=== PATIENT | female | born 1950 | race Caucasian/White ===

== ENCOUNTER 2016-10-09 14:08 | Inpatient (IN) | payer MEDICARE ==
[~2016-10-09] VITALS: Ht 152.4 cm; Wt 74.0 kg
[~2016-10-09 14:08] MED LIST changes: -CLON0.1T PO; -CLOP75TA22 PO; -HYDR2TAB13 PO; +HYDR2TAB29 PO; -LOSA50TA2 PO; -PRED5TAB PO
[2016-10-09] MEDS ORDERED: PRED5TAB PO (14:48)
[2016-10-09] MEDS ORDERED: CLOP75TA22 PO (14:48)
[2016-10-09] MEDS ORDERED: LOSA50TA2 PO (14:48)
[2016-10-09] MEDS ORDERED: CLON0.1T PO (14:48)
[2016-10-17] MEDS ORDERED: THROMBIN 5,000 UNIT VIAL TP ONE (06:04)
[2016-10-17] MEDS ORDERED: BACITRACIN 50,000 UNIT ONE (06:04)
[2016-10-17] MEDS ORDERED: BUPIVACAINE/PF-EPI 0.5% 1:200K ONE (06:04)
[2016-10-17 08:24] VITALS: BP 168/87
[2016-10-17] MEDS ORDERED: LACTATED RINGERS 1,000 ML IV SCH (08:28)
[2016-10-17] MEDS ORDERED: ACTEMRA (08:33)
[2016-10-17] MEDS ORDERED: MIDAZOLAM 1 MG/ML, 2ML ONE (08:51)
[2016-10-17] MEDS ORDERED: FENTANYL PF 100 MCG/2ML ONE ×3 (08:51→12:16)
[2016-10-17] MEDS ORDERED: EPHEDRINE 50 MG/ML, 1ML IVPush PRN (09:00)
[2016-10-17] MEDS ORDERED: hydrALAzine 20 MG/ML, 1ML IV PRN (09:00)
[2016-10-17] MEDS ORDERED: LABETALOL 5MG/ML, 20ML IV PRN ×2 (09:00→16:00)
[2016-10-17] MEDS ORDERED: OXYcodone 5 MG/5 ML ORAL.SOL UDC PO PRN (09:00)
[2016-10-17] MEDS ORDERED: MIDAZOLAM 1 MG/ML, 2ML IV PRN (09:00)
[2016-10-17] MEDS ORDERED: ONDANSETRON 2MG/ML, 2ML IVPush PRN (09:00)
[2016-10-17] MEDS ORDERED: MEPERIDINE/PF 25MG/0.5ML IVPush PRN (09:00)
[2016-10-17] MEDS ORDERED: ACETAMINOPHEN 325 MG TABLET PO PRN (09:00)
[2016-10-17] MEDS ORDERED: HYDROcodone/APAP 7.5-325MG/15ML UDC PO PRN (09:00)
[2016-10-17] MEDS ORDERED: FENTANYL PF 100 MCG/2ML IV PRN (09:00)
[2016-10-17] MEDS ORDERED: PROMETHAZINE 25 MG/ML, 1ML IV PRN (09:00)
[2016-10-17] MEDS ORDERED: PHENYLEPHRINE 10 MG/ML ONE (10:11)
[2016-10-17] MEDS ORDERED: SUCCINYLCHOLINE 20 MG/ML, 10ML ONE (10:11)
[2016-10-17] MEDS ORDERED: REMIFENTANIL 2 MG ONE (10:11)
[2016-10-17] MEDS ORDERED: ONDANSETRON 2MG/ML, 2ML ONE (10:11)
[2016-10-17] MEDS ORDERED: KETOROLAC 30 MG/1 ML ONE (10:11)
[2016-10-17] MEDS ORDERED: EPHEDRINE 50 MG/ML, 1ML ONE (10:11)
[2016-10-17] MEDS ORDERED: PROPOFOL 10 MG/ML, 20ML ONE (10:11)
[2016-10-17] MEDS ORDERED: CEFAZOLIN 1,000 MG ONE (10:11)
[2016-10-17] MEDS ORDERED: PROPOFOL 10 MG/ML, 50ML ONE (10:11)
[2016-10-17] MEDS ORDERED: DEXAMETHASONE 4 MG/ML, 1ML ONE (10:11)
[2016-10-17] MEDS: HYDROmorphone 1 MG/ML, 1ML IV PRN ×2 (12:05→12:29)
[2016-10-17] MEDS ORDERED: LABETALOL 5MG/ML, 20ML ONE (12:16)
[2016-10-17] MEDS ORDERED: HYDROmorphone 1 MG/ML, 1ML ONE (12:16)
[2016-10-17] MEDS ORDERED: HYDROcodone/APAP 7.5-325MG/15ML UDC ONE (12:16)
[2016-10-17] MEDS ORDERED: hydrALAzine 20 MG/ML, 1ML ONE (12:31)
[2016-10-17] MEDS ORDERED: ONDANSETRON 2MG/ML, 2ML IV PRN (16:00)
[2016-10-17] MEDS ORDERED: BISACODYL 10 MG SUPP PR PRN (16:00)
[2016-10-17] MEDS ORDERED: DIPHENHYDRAMINE 25 MG CAPSULE PO PRN (16:00)
[2016-10-17] MEDS ORDERED: MAGNESIUM HYDROXIDE 8%, 30ML UDC PO PRN (16:00)
[2016-10-17] MEDS ORDERED: NITROGLYCERIN 0.4 MG BOTTLE (25 TABS) SL PRN (16:30)
[2016-10-17] MEDS: morphine SULFATE 10 MG/ML, 1ML IV PRN ×2 (16:42→20:18)
[2016-10-17] MEDS: CEFAZOLIN PMX 1GM/50ML 50 ML IVPB SCH (17:19)
[2016-10-17] MEDS: DEXAMETHASONE 4 MG/ML, 1ML IV SCH (17:19)
[2016-10-17] MEDS: D5%-0.9% NACL+KCL 20MEQ 1,000 ML IV SCH (17:20)
[2016-10-17] MEDS: CYCLOBENZAPRINE 10 MG TABLET PO PRN (18:09)
[2016-10-17] MEDS: FAMOTIDINE 20 MG TABLET PO SCH (20:21)
[2016-10-17] MEDS: LOSARTAN 50MG TABLET PO SCH (20:21)
[2016-10-17] MEDS: HYDROmorphone 2MG TABLET PO PRN (23:24)
[2016-10-18] MEDS: DEXAMETHASONE 4 MG/ML, 1ML IV SCH (01:14)
[2016-10-18] MEDS: CEFAZOLIN PMX 1GM/50ML 50 ML IVPB SCH ×3 (02:14→20:09)
[2016-10-18 03:37] VITALS: BP 138/76
[2016-10-18] MEDS: HYDROmorphone 2MG TABLET PO PRN ×2 (03:48→13:16)
[2016-10-18 05:47] LABS: BLOOD UREA NITROGEN 8 mg/dL (7-18)
[2016-10-18] MEDS: HYDROcodone/APAP 10/325 MG TABLET PO PRN ×2 (05:47→21:57)
[2016-10-18] MEDS: LEVOTHYROXINE 112 MCG TABLET PO SCH (05:57)
[2016-10-18] MEDS: D5%-0.9% NACL+KCL 20MEQ 1,000 ML IV SCH ×2 (06:36→19:00)
[2016-10-18 07:13] LABS: IS PT STATUS REG ER OR PRE ER? NO
[2016-10-18 07:50] VITALS: BP 134/74
[2016-10-18] MEDS ORDERED: NITROGLYCERIN 0.4 MG BOTTLE (25 TABS) SL PRN (08:00)
[2016-10-18] MEDS: NITROGLYCERIN OINT 2%, 1GM TP SCH ×4 (08:00→22:00)
[2016-10-18] MEDS: morphine SULFATE 10 MG/ML, 1ML IV PRN ×4 (08:19→20:12)
[2016-10-18 09:30] VITALS: BP 146/80
[2016-10-18] MEDS: LOSARTAN 50MG TABLET PO SCH ×2 (09:32→21:56)
[2016-10-18] MEDS: FAMOTIDINE 20 MG TABLET PO SCH ×2 (09:33→21:56)
[2016-10-18] MEDS: AMLODIPINE 5 MG TABLET PO SCH (09:33)
[2016-10-18] MEDS: METOPROLOL SUCCINATE 25 MG TAB.ER.24H PO SCH ×2 (09:34→21:57)
[2016-10-18] MEDS: SENNA/DOCUSATE TABLET PO SCH (09:40)
[2016-10-18 12:46] LABS: IS PT STATUS REG ER OR PRE ER? NO
[2016-10-18] MEDS: CYCLOBENZAPRINE 10 MG TABLET PO PRN (13:17)
[2016-10-18 13:20] VITALS: BP 116/55
[2016-10-18] MEDS: MAALOX/HYOSCYAMINE/LIDOCAINE 45 ML BTL PO SCH ×2 (14:44→21:55)
[2016-10-18 18:35] LABS: IS PT STATUS REG ER OR PRE ER? NO
[2016-10-18] MEDS ORDERED: MAALOX/HYOSCYAMINE/LIDOCAINE 45 ML BTL PO PRN (19:00)
[2016-10-18 21:07] VITALS: BP 124/77
[2016-10-18] MEDS: PRAVASTATIN 40 MG TABLET PO SCH (21:57)
[2016-10-19 01:00] VITALS: BP 105/68
[2016-10-19] MEDS: morphine SULFATE 10 MG/ML, 1ML IV PRN ×3 (01:53→09:59)
[2016-10-19] MEDS: NITROGLYCERIN OINT 2%, 1GM TP SCH (01:53)
[2016-10-19] MEDS: CEFAZOLIN PMX 1GM/50ML 50 ML IVPB SCH ×3 (03:38→20:17)
[2016-10-19] MEDS: LEVOTHYROXINE 112 MCG TABLET PO SCH (06:14)
[2016-10-19 08:05] VITALS: BP 112/87
[2016-10-19] MEDS: FAMOTIDINE 20 MG TABLET PO SCH ×2 (08:17→20:17)
[2016-10-19] MEDS: CYCLOBENZAPRINE 10 MG TABLET PO PRN ×2 (08:17→17:18)
[2016-10-19] MEDS: AMLODIPINE 5 MG TABLET PO SCH (08:17)
[2016-10-19] MEDS: METOPROLOL SUCCINATE 25 MG TAB.ER.24H PO SCH ×2 (08:18→20:18)
[2016-10-19] MEDS: LOSARTAN 50MG TABLET PO SCH (08:18)
[2016-10-19] MEDS: SENNA/DOCUSATE TABLET PO SCH (08:18)
[2016-10-19] MEDS: D5%-0.9% NACL+KCL 20MEQ 1,000 ML IV SCH ×2 (09:51→23:16)
[2016-10-19] MEDS ORDERED: LIDODERM 5% PATCH TD PRN (10:00)
[2016-10-19] MEDS: HYDROmorphone 2MG TABLET PO PRN ×3 (13:40→23:15)
[2016-10-19 15:21] VITALS: BP 118/72
[2016-10-19 18:52] VITALS: BP 115/73
[2016-10-19] MEDS: HYDROcodone/APAP 10/325 MG TABLET PO PRN (20:18)
[2016-10-19] MEDS: PRAVASTATIN 40 MG TABLET PO SCH (20:18)
[2016-10-20] MEDS: HYDROcodone/APAP 10/325 MG TABLET PO PRN ×4 (01:08→15:02)
[2016-10-20 02:04] VITALS: BP 134/84
[2016-10-20] MEDS: HYDROmorphone 2MG TABLET PO PRN (04:09)
[2016-10-20] MEDS: CEFAZOLIN PMX 1GM/50ML 50 ML IVPB SCH ×2 (04:09→12:48)
[2016-10-20] MEDS: LEVOTHYROXINE 112 MCG TABLET PO SCH (06:16)
[2016-10-20 07:26] VITALS: BP 146/80
[2016-10-20] MEDS ORDERED: REGADENOSON 0.4 MG/5 ML SYRINGE ONE (08:30)
[2016-10-20] MEDS ORDERED: LOSARTAN 50MG TABLET PO SCH (09:00)
[2016-10-20] MEDS: SENNA/DOCUSATE TABLET PO SCH (09:00)
[2016-10-20] MEDS: METOPROLOL SUCCINATE 25 MG TAB.ER.24H PO SCH (11:08)
[2016-10-20] MEDS: FAMOTIDINE 20 MG TABLET PO SCH (11:08)
[2016-10-20] MEDS: CYCLOBENZAPRINE 10 MG TABLET PO PRN (11:09)
[2016-10-20] MEDS: AMLODIPINE 5 MG TABLET PO SCH (12:10)
[2016-10-20] MEDS ORDERED: HYDR-3144 PO (14:31)
[2016-10-20] MEDS ORDERED: AMLO5TAB2 PO (14:32)
[2016-10-20] MEDS ORDERED: SENN1TAB7 PO (14:33)
[2016-10-20] MEDS ORDERED: CYCL5TAB PO (14:33)
[2016-10-20 14:50] VITALS: BP 116/69
== END 2016-10-20 15:35 | disposition home or self-care (01) | DRG 472 ==
LOC: ORIP 10-17 07:12 → 4WST 10-17 15:09 → EDSTATUS 10-17 18:45
PROVIDERS: ADMIT Neurological Surgery; ATTEND Neurological Surgery
PROC: 0RB30ZZ Excision of Cervical Vertebral Disc, Open Approach (ICD-10-PCS; 2016-10-17)
PROC: 0RG20A0 Fusion of 2 or more Cervical Vertebral Joints with Interbody Fusion Device, Anterior Approach, Anterior Column, Open Approach (ICD-10-PCS; principal; 2016-10-17 10:00)
DX: M50.121 Cervical disc disorder at C4-C5 level with radiculopathy (principal); I24.9 Acute ischemic heart disease, unspecified; D63.8 Anemia in other chronic diseases classified elsewhere; E03.9 Hypothyroidism, unspecified; E78.5 Hyperlipidemia, unspecified; I10 Essential (primary) hypertension; G47.33 Obstructive sleep apnea (adult) (pediatric); I34.0 Nonrheumatic mitral (valve) insufficiency; M06.9 Rheumatoid arthritis, unspecified; Z88.5 Allergy status to narcotic agent; Z87.891 Personal history of nicotine dependence; I25.2 Old myocardial infarction; Z90.5 Acquired absence of kidney; Z90.710 Acquired absence of both cervix and uterus; Z90.722 Acquired absence of ovaries, bilateral; Z90.49 Acquired absence of other specified parts of digestive tract; Z90.89 Acquired absence of other organs; Z95.5 Presence of coronary angioplasty implant and graft; R20.9 Unspecified disturbances of skin sensation; M48.02 Spinal stenosis, cervical region; M48.06 Spinal stenosis, lumbar region; I25.119 Atherosclerotic heart disease of native coronary artery with unspecified angina pectoris
CPT/HCPCS: 36415; 72040; 78452; 80048; 82040; 83874; 84484; 85025; 86850; 86900; 93005; 93017; 93306; C1713; J0690; J1100; J1170; J1885; J2250; J2405; J2704; J2785; J3010; A9502; C1762; C1778; C9898; J0330; J0360; J2270; J2370; J3480; J7120

== ENCOUNTER → 2016-10-09 | Outpatient (CLI) | payer MEDICARE ==
[~2016-10-09] MED LIST: ASPI-496 PO; ASPI-621 PO; ATOR20TA9 PO; CARV12.52 PO; CLON0.1T PO; CLOP75TA22 PO; DIAZ5TAB PO; ESOM40CA PO; ESOM40SU PO; FOLI-17 PO; HYDR-3307 PO; HYDR2TAB13 PO; IBUP800T PO; LEVO112T2 PO; LEVO112T4 PO; LEVO500T33 PO; LOSA25TA2 PO; LOSA25TA5 PO; LOSA50TA2 PO; METH2.5T PO; METH4TAB6 PO; METO25TA35 PO; METO25TA91 PO; NITR0.4T8 SL; OLME40TA PO; PRED5TAB PO; TICA90TA PO
[2016-10-09 15:35] LABS: PATH.CAST-FLAG NOT PRESENT; SPERM-FLAG NOT PRESENT; SRC-FLAG NOT PRESENT; XTAL-FLAG NOT PRESENT; YLC-FLAG NOT PRESENT
[2016-10-09 15:42] LABS: BLOOD UREA NITROGEN 10 mg/dL (7-18)
[2016-10-09 15:45] LABS: ASPARTATE AMINO TRANSFERASE 21 U/L (15-37)
== END | disposition home or self-care (01) ==
LOC: STAR 13:58
PROVIDERS: ATTEND Neurological Surgery
DX: Z01.818 Encounter for other preprocedural examination (principal); R94.31 Abnormal electrocardiogram [ECG] [EKG]; M50.321 Other cervical disc degeneration at C4-C5 level; M50.322 Other cervical disc degeneration at C5-C6 level; M50.323 Other cervical disc degeneration at C6-C7 level; R79.1 Abnormal coagulation profile
CPT/HCPCS: 36415; 71020; 80053; 81001; 85025; 85610; 85730; 93005

== ENCOUNTER → 2017-04-29 | Outpatient (CLI) | payer MEDICARE ==
[~2017-04-29] MED LIST changes: +ACTEMRA; +AMLO5TAB2 PO; +CEPH-368 PO; +CLON0.1T PO; +CLOP75TA52 PO; +CYCL5TAB PO; +HYDR-3237 PO; +HYDR-3245 PO; +IBUP-1223 PO; -IBUP800T PO; -LEVO500T33 PO; +LEVO500T47 PO; +LOSA50TA2 PO; +METH750T2 PO; +NITR0.4T28 SL; -NITR0.4T8 SL; -OLME40TA PO; +OLME40TA12 PO; +PRED5TAB PO; +RANI150T8 PO; +SENN1TAB7 PO
[2017-04-29 10:00] LABS: BASOPHILS # (AUTO) 0.07 x10^3/uL (0-0.1); BASOPHILS % (AUTO) 1 % (0-1); EOSINOPHILS # (AUTO) 0.11 x10^3/uL (0-0.4); EOSINOPHILS % (AUTO) 1 % (1-7); LYMPHOCYTES # (AUTO) 1.86 x10^3/uL (1-3.4); LYMPHOCYTES % (AUTO) 23 % (22-44); MD NO; MEAN CORPUSCULAR HEMOGLOBIN 31.6 pg (27.0-34.8); MEAN PLATELET VOLUME 8.1 fL (7.4-10.4); MONOCYTES # (AUTO) 0.67 x10^3/uL (0.2-0.8); MONOCYTES % (AUTO) 8 % (2-9); NEUTROPHILS # (AUTO) 5.44 x10^3/uL (1.8-6.8); NEUTROPHILS % (AUTO) 67 % (42-75); PLATELET COUNT 218 x10^3/uL (130-400); RED BLOOD COUNT 4.97 x10^6/uL (3.82-5.3); RED CELL DISTRIBUTION WIDTH 16.8 % (9.6-15.2)
[2017-04-29 10:04] LABS: MICROSCOPIC AUTO
[2017-04-29 10:08] LABS: INTERNATIONAL NORMALIZED RATIO 1.05 (0.93-1.1); PROTHROMBIN TIME 10.9 Seconds (9.6-11.5)
[2017-04-29 10:10] LABS: ALANINE AMINOTRANSFERASE 27 U/L (12-78); ALBUMIN 3.8 g/dL (3.4-5.0); ANION GAP 4 mmol/L (5-15); CALCIUM 8.9 mg/dL (8.5-10.1); CHLORIDE 108 mmol/L (98-107); CREATININE 0.91 mg/dL (0.55-1.02)
[2017-04-29 10:12] LABS: ALKALINE PHOSPHATASE 59 U/L (45-117); BILIRUBIN,TOTAL 0.3 mg/dL (0.2-1.0)
[2017-04-29 10:19] LABS: CULTURE INDICATED? NO
== END | disposition home or self-care (01) ==
LOC: STAR 08:46
PROVIDERS: ATTEND Neurological Surgery
DX: Z01.818 Encounter for other preprocedural examination (principal); M51.36 Other intervertebral disc degeneration, lumbar region; R94.31 Abnormal electrocardiogram [ECG] [EKG]; I25.2 Old myocardial infarction; E03.9 Hypothyroidism, unspecified; I10 Essential (primary) hypertension; G47.33 Obstructive sleep apnea (adult) (pediatric); I25.10 Atherosclerotic heart disease of native coronary artery without angina pectoris; E78.5 Hyperlipidemia, unspecified; R79.1 Abnormal coagulation profile
CPT/HCPCS: 36415; 71046; 80053; 81001; 85025; 85610; 85730; 93005

== ENCOUNTER 2017-05-08 10:54 | Inpatient (IN) | payer MEDICARE ==
[~2017-05-08] VITALS: Ht 152.4 cm; Wt 67.0 kg
[~2017-05-08 10:54] MED LIST changes: +BACITRACIN 50,000 UNIT ONE; +BUPIVACAINE 0.25% ONE; +BUPIVACAINE/PF 0.5% ONE; -CEPH-368 PO; +EPINEPHRINE 1 MG/ML, 1ML ONE; -HYDR-3237 PO; -METH750T2 PO; +THROMBIN 5,000 UNIT VIAL TP ONE
[2017-05-08] MEDS ORDERED: LACTATED RINGERS 1,000 ML IV SCH (11:32)
[2017-05-08] MEDS ORDERED: FENTANYL PF 250 MCG/5ML ONE (11:58)
[2017-05-08] MEDS ORDERED: MIDAZOLAM 1 MG/ML, 2ML ONE (11:58)
[2017-05-08] MEDS ORDERED: PROPOFOL 10 MG/ML, 20ML ONE (14:26)
[2017-05-08] MEDS ORDERED: DEXAMETHASONE 4 MG/ML, 1ML ONE ×2 (14:37)
[2017-05-08] MEDS ORDERED: CEFAZOLIN 1,000 MG ONE ×2 (14:38→14:39)
[2017-05-08] MEDS ORDERED: BUPIVACAINE/PF 0.25% EPIDPUSH ONE (15:01)
[2017-05-08] MEDS ORDERED: FENTANYL PF 100 MCG/2ML EPIDPUSH ONE (15:01)
[2017-05-08] MEDS ORDERED: FENTANYL PF 100 MCG/2ML ONE (15:26)
[2017-05-08] MEDS ORDERED: ONDANSETRON 2MG/ML, 2ML ONE (15:27)
[2017-05-08] MEDS ORDERED: LABETALOL 5MG/ML, 20ML IV PRN (15:30)
[2017-05-08] MEDS ORDERED: HYDROmorphone 1 MG/ML, 1ML IV PRN (15:30)
[2017-05-08] MEDS ORDERED: FENTANYL PF 100 MCG/2ML IV PRN (15:30)
[2017-05-08] MEDS ORDERED: ALBUTEROL SULFATE 2.5 MG/3 ML NPPB PRN (15:30)
[2017-05-08] MEDS ORDERED: PROMETHAZINE 25 MG/ML, 1ML IV PRN (15:30)
[2017-05-08] MEDS ORDERED: DIAZEPAM 5 MG/ML, 2ML IVPush PRN (15:30)
[2017-05-08] MEDS ORDERED: hydrALAzine 20 MG/ML, 1ML IV PRN (15:30)
[2017-05-08] MEDS ORDERED: ONDANSETRON 2MG/ML, 2ML IVPush PRN ×2 (15:30→16:00)
[2017-05-08] MEDS ORDERED: ACETAMINOPHEN 325 MG TABLET PO PRN (15:30)
[2017-05-08] MEDS ORDERED: OXYcodone 5 MG/5 ML ORAL.SOL UDC PO PRN (15:30)
[2017-05-08] MEDS ORDERED: ROCURONIUM 10 MG/ML,10ML ONE (15:30)
[2017-05-08] MEDS ORDERED: morphine SULFATE 10 MG/ML, 1ML IVPush PRN (16:00)
[2017-05-08] MEDS ORDERED: PROMETHAZINE 25 MG/ML, 1ML IM PRN (16:00)
[2017-05-08] MEDS ORDERED: HYDROcodone/APAP 5/325 TABLET PO PRN (16:00)
[2017-05-08] MEDS ORDERED: SENNA/DOCUSATE TABLET PO PRN (16:00)
[2017-05-08] MEDS ORDERED: BISACODYL 10 MG SUPP PR PRN (16:00)
[2017-05-08] MEDS ORDERED: OXYcodone/APAP 5/325MG TABLET PO PRN (16:00)
[2017-05-08] MEDS ORDERED: CYCLOBENZAPRINE 10 MG TABLET PO PRN (16:00)
[2017-05-08] MEDS ORDERED: DIPHENHYDRAMINE 50 MG/ML, 1ML IVPush PRN ×2 (16:00→17:00)
[2017-05-08] MEDS: METOPROLOL SUCCINATE 25 MG TAB.ER.24H PO SCH ×2 (16:00→21:00)
[2017-05-08] MEDS ORDERED: NITROGLYCERIN 0.4 MG BOTTLE (25 TABS) SL SCH (16:00)
[2017-05-08] MEDS ORDERED: PHARMACY MAY ADJ FOR RENAL FX MC PRN (16:00)
[2017-05-08] MEDS ORDERED: HYDROcodone/APAP 7.5-325MG/15ML UDC ONE (16:12)
[2017-05-08] MEDS ORDERED: HYDROcodone/APAP 7.5-325MG/15ML UDC PO PRN (16:30)
[2017-05-08] MEDS ORDERED: DIPHENHYDRAMINE 50 MG/ML, 1ML ONE (16:48)
[2017-05-08 20:04] VITALS: BP 101/67
[2017-05-08] MEDS: SODIUM CHLORIDE FLUSH 10ML SYR IVF SCH (21:00)
[2017-05-08] MEDS: LOSARTAN 50MG TABLET PO SCH (21:00)
[2017-05-08] MEDS: FAMOTIDINE 20 MG TABLET PO SCH (21:00)
[2017-05-08] MEDS: HYDROcodone/APAP 10/325 MG TABLET PO PRN ×2 (21:16→22:18)
[2017-05-08] MEDS: D5%-0.9% NACL+KCL 20MEQ 1,000 ML IV SCH (22:19)
[2017-05-08] MEDS: CEFAZOLIN PMX 1GM/50ML 50 ML IVPB SCH (22:58)
[2017-05-08 23:57] VITALS: BP 116/77
[2017-05-09] MEDS ORDERED: METHOCARBAMOL 750 MG TABLET ONE (01:38)
[2017-05-09] MEDS: METHOCARBAMOL 750 MG TABLET PO PRN ×2 (01:41→09:32)
[2017-05-09] MEDS: HYDROcodone/APAP 10/325 MG TABLET PO PRN ×5 (02:28→20:05)
[2017-05-09] MEDS ORDERED: HYDROmorphone 1 MG/ML, 1ML IV PRN (03:30)
[2017-05-09] MEDS ORDERED: HYDROmorphone 2 MG/ML, 1ML ONE (03:35)
[2017-05-09 03:40] VITALS: BP 116/67
[2017-05-09] MEDS: CEFAZOLIN PMX 1GM/50ML 50 ML IVPB SCH (06:25)
[2017-05-09 08:20] VITALS: BP 107/66
[2017-05-09] MEDS ORDERED: OXYcodone/APAP 10/325MG TABLET PO PRN (08:30)
[2017-05-09] MEDS ORDERED: KETOROLAC 30 MG/1 ML IV ONE (08:30)
[2017-05-09] MEDS ORDERED: OXYcodone/APAP 5/325MG TABLET PO PRN (08:30)
[2017-05-09] MEDS: METOPROLOL SUCCINATE 25 MG TAB.ER.24H PO SCH ×3 (08:45→20:05)
[2017-05-09] MEDS: FAMOTIDINE 20 MG TABLET PO SCH ×2 (08:45→20:05)
[2017-05-09] MEDS: LEVOTHYROXINE 112 MCG TABLET PO SCH (08:45)
[2017-05-09] MEDS: LOSARTAN 50MG TABLET PO SCH ×2 (08:46→20:06)
[2017-05-09] MEDS: SODIUM CHLORIDE FLUSH 10ML SYR IVF SCH ×2 (08:46→20:06)
[2017-05-09] MEDS: FOLIC ACID 1 MG TABLET PO SCH (08:46)
[2017-05-09] MEDS ORDERED: KETOROLAC 30 MG/1 ML IV PRN (14:30)
[2017-05-09 14:54] VITALS: BP 93/56
[2017-05-09 15:36] VITALS: BP 111/65
[2017-05-09] MEDS: D5%-0.9% NACL+KCL 20MEQ 1,000 ML IV SCH (17:42)
[2017-05-09 20:01] VITALS: BP 122/73
[2017-05-10] MEDS: HYDROcodone/APAP 10/325 MG TABLET PO PRN ×5 (00:22→20:02)
[2017-05-10 01:35] VITALS: BP 115/71
[2017-05-10] MEDS: METHOCARBAMOL 750 MG TABLET PO PRN ×3 (03:01→17:26)
[2017-05-10 05:32] LABS: ANION GAP 4 mmol/L (5-15); CALCIUM 8.1 mg/dL (8.5-10.1); CHLORIDE 106 mmol/L (98-107)
[2017-05-10 05:35] LABS: BASOPHILS # (AUTO) 0.06 x10^3/uL (0-0.1); BASOPHILS % (AUTO) 1 % (0-1); EOSINOPHILS # (AUTO) 0.18 x10^3/uL (0-0.4); EOSINOPHILS % (AUTO) 2 % (1-7); LYMPHOCYTES # (AUTO) 2.71 x10^3/uL (1-3.4); LYMPHOCYTES % (AUTO) 29 % (22-44); MD NO; MEAN CORPUSCULAR HEMOGLOBIN 31.8 pg (27.0-34.8); MEAN CORPUSCULAR HGB CONC 33.7 g/dL (32.4-35.8); MEAN CORPUSCULAR VOLUME 94.2 fL (80-100); MEAN PLATELET VOLUME 8.5 fL (7.4-10.4); MONOCYTES # (AUTO) 0.79 x10^3/uL (0.2-0.8); MONOCYTES % (AUTO) 9 % (2-9); NEUTROPHILS # (AUTO) 5.58 x10^3/uL (1.8-6.8); NEUTROPHILS % (AUTO) 60 % (42-75); PLATELET COUNT 216 x10^3/uL (130-400); RED BLOOD COUNT 3.81 x10^6/uL (3.82-5.3); RED CELL DISTRIBUTION WIDTH 16.1 % (9.6-15.2)
[2017-05-10] MEDS: LEVOTHYROXINE 112 MCG TABLET PO SCH (05:59)
[2017-05-10 07:08] VITALS: BP 127/81
[2017-05-10] MEDS: LOSARTAN 50MG TABLET PO SCH ×2 (08:36→21:34)
[2017-05-10] MEDS: FAMOTIDINE 20 MG TABLET PO SCH ×2 (08:37→21:34)
[2017-05-10] MEDS: METOPROLOL SUCCINATE 25 MG TAB.ER.24H PO SCH ×3 (08:37→21:34)
[2017-05-10] MEDS: FOLIC ACID 1 MG TABLET PO SCH (09:27)
[2017-05-10] MEDS: SODIUM CHLORIDE FLUSH 10ML SYR IVF SCH ×2 (09:30→21:00)
[2017-05-10 13:08] VITALS: BP 109/72
[2017-05-10] MEDS: D5%-0.9% NACL+KCL 20MEQ 1,000 ML IV SCH (15:00)
[2017-05-10 17:11] VITALS: BP 111/79
[2017-05-10 19:51] VITALS: BP 104/54
[2017-05-11] MEDS: HYDROcodone/APAP 10/325 MG TABLET PO PRN ×2 (01:36→05:40)
[2017-05-11 01:41] VITALS: BP 157/79
[2017-05-11] MEDS: LEVOTHYROXINE 112 MCG TABLET PO SCH (05:40)
[2017-05-11 07:06] VITALS: BP 144/70
[2017-05-11] MEDS: FAMOTIDINE 20 MG TABLET PO SCH (08:05)
[2017-05-11] MEDS: METOPROLOL SUCCINATE 25 MG TAB.ER.24H PO SCH (08:05)
[2017-05-11] MEDS: LOSARTAN 50MG TABLET PO SCH (08:05)
[2017-05-11] MEDS: FOLIC ACID 1 MG TABLET PO SCH (08:05)
[2017-05-11] MEDS: METHOCARBAMOL 750 MG TABLET PO PRN (08:09)
[2017-05-11] MEDS: SODIUM CHLORIDE FLUSH 10ML SYR IVF SCH (08:10)
[2017-05-11] MEDS ORDERED: HYDR-3237 PO (08:25)
[2017-05-11] MEDS ORDERED: METH750T2 PO (08:25)
[2017-05-11] MEDS ORDERED: CEPH-368 PO (08:26)
[2017-05-11 09:34] VITALS: BP 155/78
== END 2017-05-11 10:43 | disposition home or self-care (01) | DRG 517 ==
LOC: OUT 10:54 → ORIP 15:56 → 4NOR 17:38 → OBSVTOIN 05-10 16:43 → UNDODISOB 05-11 10:46
PROVIDERS: ADMIT Neurological Surgery; ATTEND Neurological Surgery
PROC: 01NB0ZZ Release Lumbar Nerve, Open Approach (ICD-10-PCS; principal; 2017-05-08 14:30)
DX: M48.062 Spinal stenosis, lumbar region with neurogenic claudication (principal); F41.9 Anxiety disorder, unspecified; I10 Essential (primary) hypertension; M51.16 Intervertebral disc disorders with radiculopathy, lumbar region; G89.29 Other chronic pain; M19.90 Unspecified osteoarthritis, unspecified site; Z87.891 Personal history of nicotine dependence; Z88.5 Allergy status to narcotic agent
CPT/HCPCS: 36415; 72100; 80048; 85025; G0378; J0171; J0690; J1100; J1170; J1885; J2250; J2405; J2704; J3010; J3490; J1200; J3480; J7120